=== PATIENT | male | born 1945 | race Caucasian/White ===

== ENCOUNTER 2016-06-02 05:47 | Inpatient (IN) | payer OTHER ==
[2016-05-23 09:16] LABS: % IMMATURE GRANULYOCYTES 0.4 % (0.0-1.1); ABSOLUTE IMMATURE GRANULOCYTES 0.02 10^3/uL (0.00-0.10); ADD DIFF? NO; ADD MORPH? NO; ADD SCAN? NO; ATYPICAL LYMPHOCYTE FLAG 10 (0-99); FRAGMENT RBC FLAG 0 (0-99); HEMATOCRIT 45.8 % (40.0-51.0); HEMOGLOBIN 15.6 g/dL (13.7-17.5); LEFT SHIFT FLG 0 (0-99); LIPEMIA HEMOLYSIS FLAG 90 (0-99); MEAN CELL HEMOGLOBIN 31.8 pg (27.9-34.1); MEAN CELL HEMOGLOBIN CONCENTR. 34.1 g/dL (32.4-36.7); MEAN CELL VOLUME 93.3 fL (81.5-99.8); MEAN PLATELET VOLUME 11.1 fL (8.7-11.7); PLATELET CLUMPS FLAG 40 (0-99); PLATELET COUNT 127 10^3/uL (150-400); RED BLOOD CELL COUNT 4.91 10^6/uL (4.40-6.38); RED CELL DISTRIBUTION WIDTH 13.1 % (11.5-15.2)
[2016-06-02] MEDS ORDERED: FAMOTIDINE 20 MG TAB ONE (06:13)
[2016-06-02] MEDS ORDERED: DEXAMETHASONE 4 MG/ML VIAL ONE (06:13)
[2016-06-02] MEDS ORDERED: ACETAMINOPHEN 325 MG TAB ONE (06:14)
[2016-06-02] MEDS ORDERED: CEFAZOLIN 2 GM/DEXTROSE/100 ML BAG IV ONE (06:14)
[2016-06-02] MEDS ORDERED: LIDOCAINE 1% 5 ML SDV ONE (06:27)
[2016-06-02] MEDS ORDERED: TRANEXAMIC ACID 3,000 MG/50 ML BAG IRR ONE (06:33)
[2016-06-02] MEDS ORDERED: SKIN ADHESIVE (DERMABOND) 1 EACH TP ONE (06:33)
[2016-06-02] MEDS ORDERED: VANCOMYCIN 1 GM VIAL IV ONE (06:34)
[2016-06-02] MEDS ORDERED: LR 1,000 ML IV ONE (06:45)
[2016-06-02] MEDS ORDERED: LIDOCAINE 1% 5 ML SDV ID PRN (06:45)
[2016-06-02] MEDS ORDERED: MIDAZOLAM 2 MG/2 ML VIAL ONE (06:50)
[2016-06-02] MEDS ORDERED: ACETAMINOPHEN 325 MG TAB PO ONE (07:00)
[2016-06-02] MEDS ORDERED: CEFAZOLIN 2 GM/DEXTR 100 ML IV ONE (07:00)
[2016-06-02] MEDS ORDERED: CHLORHEXIDINE GLUC HIBICLENS 118 ML BTL TP ONE (07:00)
[2016-06-02] MEDS ORDERED: ROPI/epiNEPH/KETOROLAC JOINT COCKTAIL IU ONE (07:00)
[2016-06-02] MEDS ORDERED: FAMOTIDINE 20 MG TAB PO ONE (07:00)
[2016-06-02] MEDS ORDERED: TRANEXAMIC ACID 3,000 MG in NS 50 ML IRR ONE (07:00)
[2016-06-02] MEDS ORDERED: DEXAMETHASONE 4 MG/ML VIAL IVP ONE (07:00)
[2016-06-02] MEDS ORDERED: PROPOFOL/EMULSION 500 MG/50 ML BOTTLE IV ONE (07:02)
[2016-06-02] MEDS ORDERED: POLYETHYLENE GLYCOL 3350 17 GM PKT PO PRN (07:25)
[2016-06-02] MEDS ORDERED: ONDANSETRON DISINTEGRATING 4 MG TAB PO PRN (07:25)
[2016-06-02] MEDS ORDERED: DIPHENOXYLATE/ATROPINE LOMOTIL 1 TAB PO PRN (07:25)
[2016-06-02] MEDS ORDERED: PHARMACY PAIN CONSULT 1 EA MISC PRN (07:25)
[2016-06-02] MEDS ORDERED: LACTULOSE 20 GM/30 ML UDCUP PO PRN (07:25)
[2016-06-02] MEDS ORDERED: PROMETHAZINE HCL 25 MG/ML INJ IVP PRN (07:25)
[2016-06-02] MEDS ORDERED: BISACODYL 10 MG SUPP PR PRN (07:25)
[2016-06-02] MEDS ORDERED: CYCLOBENZAPRINE 10 MG TAB PO PRN (07:25)
[2016-06-02] MEDS ORDERED: TEMAZEPAM 15 MG CAP PO PRN (07:25)
[2016-06-02] MEDS ORDERED: METOCLOPRAMIDE 10 MG/2 ML VIAL IVP PRN (07:25)
[2016-06-02] MEDS ORDERED: MAGNESIUM HYDROXIDE 30 ML UDCUP PO PRN (07:25)
[2016-06-02] MEDS ORDERED: ONDANSETRON 4 MG/2 ML VIAL IVP PRN (07:25)
[2016-06-02] MEDS ORDERED: diphenhydrAMINE 25 MG CAP PO PRN (07:25)
[2016-06-02] MEDS ORDERED: PROMETHAZINE HCL 25 MG SUPPR PR PRN (07:25)
[2016-06-02] MEDS ORDERED: LIDOCAINE 2% JELLY 5 ML TUBE ONE ×2 (08:07)
[2016-06-02] MEDS ORDERED: LIDOCAINE 2% 5 ML SDV ONE (08:07)
[2016-06-02] MEDS ORDERED: PROPOFOL 200 MG/20 ML VIAL ONE (08:08)
[2016-06-02] MEDS ORDERED: ROPIVACAINE HCL 150 MG/30 ML INJ ONE (08:23)
--- NOTE | 2016-06-02 08:31 | POSTOPPROG ---
Post Op Note Date of Operation: 06/02/16 Surgeon: Mao Andino Pediatric Allergist: noemi andino Anesthesiologist: dr. montanez Anesthesia: Spinal, Other (Specify) (adductor canal block) Pre-op Diagnosis: right knee OA Post-op Diagnosis: same Indication: right knee pain due to OA that failed conservative measures Procedure: R TKA Findings: severe knee OA Inf/Abcess present in the surg proc area at time of surgery?: No EBL: 50-100
--- NOTE | 2016-06-02 09:29 | DX ---
Portable Right Knee, AP and Lateral Views, Three Views Total, at 8:58 a.m. Clinical History: 70-year-old male in the PACU after a knee arthroplasty. Comparison Study: Right knee, dated March 06, 2007. Findings: The patient has undergone a tricomponent knee arthroplasty, with anatomic alignment of the distal femoral, proximal tibial, and posterior patellar components. There is normally expected air wi thin the soft tissues. A pneumatic cuff is seen over the calf. Impression: Anatomic alignment following a tricomponent knee arthroplasty.
[2016-06-02] MEDS: SENNOSIDES/DOCUSATE SODIUM TAB PO SCH ×2 (10:14→19:48)
[2016-06-02] MEDS: LR 1,000 ML IV SCH ×2 (10:33→21:58)
[2016-06-02] MEDS: ACETAMINOPHEN 325 MG TAB PO SCH ×3 (12:59→23:56)
[2016-06-02] MEDS: oxyCODONE IR 5 MG TAB PO PRN ×5 (13:00→23:56)
[2016-06-02] MEDS ORDERED: ceFAZolin 2 GM/DEXTROSE 100 ML IV SCH (14:00)
[2016-06-02] MEDS: ceFAZolin 2 GM in D5W 100 ML IV SCH ×2 (14:43→21:13)
[2016-06-02] MEDS ORDERED: WARFARIN SODIUM 5 MG TAB PO SCH (16:00)
[2016-06-02] MEDS: FAMOTIDINE 20 MG TAB PO SCH (19:48)
--- NOTE | 2016-06-02 23:05 | GOP ---
[f rep st] OPERATIVE REPORT DATE OF OPERATION: 06/02/2016 SURGEON: Miles Benton MD COMMUNICATION SKILLS INSTRUCTOR: Shelia Benton PA-C. ANESTHESIA: Spinal. PREOPERATIVE DIAGNOSIS: Right knee osteoarthritis. POSTOPERATIVE DIAGNOSIS: Right knee osteoarthritis. PROCEDURE PERFORMED: Right total knee arthroplasty. FINDINGS/PATHOLOGY: Severe tricompartmental osteoarthritis. ESTIMATED BLOOD LOSS: 30 cc. INDICATIONS: This is a 70-year-old male with severe and progressive pain and deformity of the right knee unresponsive to conservative care. Risks and benefits of the surgical intervention were explained in detail. DESCRIPTION OF PROCEDURE: The patient was brought to the operative room and placed on the table in the supine position. Spinal anesthesia was induced without difficulty. A pneumatic tourniquet was applied about the right proximal thigh, and the leg was prepped and draped in a sterile fashion. The leg jain was applied. After exsanguination by elevation the tourniquet was inflated to 275 mm of mercury. Incision was made anterior medial from the tibial tuberosity to a point 2 cm proximal to the superior pole of the patella. Medial parapatellar arthrotomy was carried out from the superior pole of the patella and posteriorly in line with the fibers of the Type II VMO. The medial collateral ligament was elevated and the infrapatellar fat pad was resected. The patella was everted and the articular surface was excised. A 38 mm patellar button was placed. The distal femoral guide hole was drilled and the 6 degree alignment janusz was placed. A 10 mm distal femoral cut was made without difficulty. Attention was turned to the tibia and a standard 9 mm cut based on the lateral tibial condyle was performed. The tibial articular surface was excised without difficulty. Attention was turned back to the femur and a size 7 Triathlon femoral cutting block was positioned. Anterior, posterior, and chamfer cuts were made, followed by the intercondylar box cut. The knee was extended and the remnants of the medial and lateral meniscus were excised. The posterior capsule was injected with ropivacaine, epinephrine and Toradol. A size 7 MIS mini-keel tibial tray was positioned. Trial reduction was then carried out. There was excellent range of motion, alignment, and stability using the 9 mm polyethylene. All trials were then removed. The joint was thoroughly irrigated and carefully dried. Two packages of cement and 2 grams of vancomycin were mixed in the vacuum mixer and placed on the fixation surfaces of all surfaces of the components. The components were implanted and all excess cement was thoroughly removed. The permanent 9 mm polyethylene X3 was placed without difficulty. The tourniquet was deflated and all bleeders were coagulated. The wound was thoroughly irrigated and closed using interrupted sutures of 2-0 Vicryl for the joint capsule. The subcu was closed with 3-0 Vicryl and the skin with 4-0 Monocryl. Dermabond and Steri-Strips were applied followed by a compressive dressing. The patient was then moved from the operating room to the recovery room in good condition, having tolerated the procedure well. /[id number]/MODL MTDD
[2016-06-03] MEDS: oxyCODONE IR 5 MG TAB PO PRN ×3 (03:35→11:09)
[2016-06-03] MEDS: ACETAMINOPHEN 325 MG TAB PO SCH ×2 (04:33→11:38)
[2016-06-03 05:17] LABS: HEMATOCRIT 34.9 % (40.0-51.0)
[2016-06-03 05:31] LABS: INR 1.21 (0.83-1.16); PROTIME(PATIENT) 15.3 SEC (12.0-15.0)
[2016-06-03] MEDS ORDERED: LEVOTHYROXINE 50 MCG TAB PO SCH (06:00)
[2016-06-03 07:34] VITALS: BP 116/68; PULSE 67; RESP 18; TEMP 98.5; O2SAT 93
[2016-06-03] MEDS: FAMOTIDINE 20 MG TAB PO SCH (08:32)
[2016-06-03] MEDS: SENNOSIDES/DOCUSATE SODIUM TAB PO SCH (08:32)
[2016-06-03] MEDS ORDERED: ENOXAPARIN 40 MG/0.4 ML SYR SC SCH (09:00)
--- NOTE | 2016-06-03 09:02 | SOAPPROG ---
SOAP Progress Note Assessment/Plan: Assessment: Sumanth is doing well POD 1 s/p R TKA pain management: pain is well controlled on oral pain meds VTE ppx: recommend coumadin and lovenox, INR today 1.2. cont ALFRED and SCD anemia: level expected initially postop, asymptomatic. continue to monitor D/c planning: d/c to home today spasms: script written for flexeril. handed to patient's today. Plan: 06/03/16 09:00 Subjective: Sumanth is doing well today, denies SOB, chest pain and N/V Objective: Vital Signs Temp Pulse Resp BP Pulse Ox 36.9 C 67 18 116/68 93 06/03/16 07:33 06/03/16 07:33 06/03/16 07:33 06/03/16 07:33 06/03/16 07:33 Laboratory Results 06/03/16 04:25 06/02/16 06/03/16 06/04/16 05:59 05:59 05:59 Intake Total 2850 Output Total 1150 275 Balance 1700 -275 PT 15.3 SEC (12.0-15.0) H 06/03/16 04:25 INR 1.21 (0.83-1.16) H 06/03/16 04:25 RLE: incision dressing is clean and dry, NVI, +pf/df ICD10 Worksheet Patient Problems: Problems Problem Status Diagnosed Primary localized osteoarthritis of right knee Acute
--- NOTE | 2016-06-08 10:11 | GDS ---
[f rep st] DISCHARGE SUMMARY ADMISSION DIAGNOSIS: Right knee osteoarthritis. DISCHARGE DIAGNOSIS: Right knee osteoarthritis. PROCEDURE: Right total knee arthroplasty. VTE PROPHYLAXIS: Coumadin and Lovenox recommended. BRIEF DESCRIPTION OF HOSPITAL STAY: Patient was admitted for an elective joint arthroplasty. The p atient tolerated the procedure well and has passed physical therapy. The patient was given appropri ate antibiotic prophylaxis and venous thromboembolism prophylaxis. The patient's pain was well cont rolled on oral pain medication, patient was holding down food, and had urinated. Decision was made to discharge the patient. The patient was given post-operative prescriptions pre-operatively. PLAN: To follow up with Dr. Benton at [facility] in 2 to 3 weeks. /[id number]/MODL
== END 2016-06-03 11:59 | disposition home or self-care (01) | DRG 470 ==
LOC: F3N 05:47
PROVIDERS: ADMIT Orthopaedic Surgery; ATTEND Orthopaedic Surgery
PROC: 0SRC0J9 Replacement of Right Knee Joint with Synthetic Substitute, Cemented, Open Approach (ICD-10-PCS; principal; 2016-06-02 07:15)
DX: M17.11 Unilateral primary osteoarthritis, right knee (principal); E03.9 Hypothyroidism, unspecified
CPT/HCPCS: 97116-GP; 97161-GP; 97165-GO; C1713; G8978-GP-CK; G8979-GP-CI; G8980-GP-CI; G8987-GO-CI; G8988-GO-CI; G8989-GO-CI; J0171; J0690; J1100; J1650; J1885; J2250; J2704; J2795; J3370

== ENCOUNTER 2017-06-29 15:37 | Emergency (ER) | payer OTHER ==
--- NOTE | 2017-06-29 15:59 | EDPHY ---
H & P Time Seen by Provider: 06/29/17 15:46 HPI/ROS: CHIEF COMPLAINT: Abdominal pain HISTORY OF PRESENT ILLNESS: Patient is had intermittent symptoms for the last 2 -3 weeks. Since yesterday at 7:00 p.m. He has had central abdominal pain not helped by Pepto-Bismol. No urinary symptoms or fever or vomiting. He has decreased appetite but no diarrhea. He had a bowel movement this morning but did not have one with coffee which is unusual for him. He presents with continued central abdominal pain. Mild symptoms, do not radiate. Symptoms are not exertional or changed with oral intake. REVIEW OF SYSTEMS: Eye: no change in vision ENT: no sore throat Cardiac: no chest pain or syncope Pulmonary: no cough or SOB Abdomen: HPI Musculoskeletal: no back pain Skin: no rash Neuro: no headache Constitutional: no fever : no urinary symptoms A comprehensive 10 point review of systems is otherwise negative aside from elements mentioned in the history of present illness. PAST MEDICAL HISTORY: Hypothyroid and prostatectomy Social history: Nonsmoker General Appearance: Alert and conversant, cooperative. Eyes: No scleral icterus. ENT, Mouth: Normal mucous membranes. Respiratory: Normal respiratory effort, breath sounds equal, lungs are clear to auscultation. Cardiovascular: Regular rate and rhythm. Gastrointestinal: Mild central and epigastric abdominal tenderness without rebound or guarding. No hernia or pulsatile mass appreciated. Neurological: Alert, face symmetric, normal motor and sensory in extremities. Ambulatory. Skin: Warm and dry, no rashes. Musculoskeletal: No peripheral edema. Psychiatric: Not agitated. Emergency Department course/MDM: Declined medication for pain. CT abdomen and pelvis with IV contrast discussed and consented. He was seen earlier at urgent care. 1622: Postvoid bladder residual is 0. 1723: Right renal cyst 14.8cm per [place], otherwise negative. Symptoms likely due to this large mass. I think at this point based on the evaluation is unlikely he has pancreatitis or gallbladder disease, or other intra- abdominal surgical process. Cardiac problem also unlikely. 1728: Discussed with Kaitlynn who will see the patient in the office early next week. Discussed with the patient. Plan for oral [place] and outpatient urology follow-up next week, patient is in agreement with this plan. Smoking Status: Never smoked Constitutional: Initial Vital Signs Temperature (C) 36.4 C 06/29/17 15:43 Heart Rate 75 06/29/17 15:43 Respiratory Rate 19 06/29/17 15:43 Blood Pressure 158/103 H 06/29/17 15:43 O2 Sat (%) 94 06/29/17 15:43 O2 Delivery Mode Room Air Allergies/Adverse Reactions: No Known Allergies Allergy (Unverified 05/02/16 11:43) Home Medications: Medication Instructions Recorded Acetaminophen [Tylenol 325mg (*)] 650 - 1,300 mg PO DAILY PRN 05/02/16 Herbals/Supplements -Info Only 1 ea PO DAILY 05/02/16 Levothyroxine [Synthroid 50 mcg 50 mcg PO DAILY06 05/02/16 (*)] Melatonin [Melatonin 3 MG (*)] 9 mg PO HS PRN 05/02/16 diphenhydrAMINE [Benadryl 25 MG 25 mg PO DAILY PRN 05/02/16 (*)] Acetaminophen [Tylenol 325mg (*)] 650 mg PO Q6HRS #0 tab 06/03/16 Cyclobenzaprine [Flexeril 10 MG 10 mg PO Q8HRS PRN #30 tab 06/03/16 (*)] Enoxaparin [Lovenox 40 MG (*)] 40 mg SC DAILY #4 syr 06/03/16 Sennosides/Docusate Sodium 1 - 2 tab PO BID #0 tab 06/03/16 [Senokot-S] Warfarin Sodium [Coumadin 5MG (*)] 5 mg PO DAILY AT 4PM #20 tab 06/03/16 celeCOXIB [Celebrex (*)] 200 mg PO DAILY #20 cap 06/03/16 oxyCODONE IR [Oxycodone Ir (*)] 5 - 10 mg PO Q3HRS PRN #120 tab 06/03/16 Hydrocodone/APAP 5/325 [[place] 0.5 - 1 tab PO Q4-6PRN PRN #11 tab 06/29/17 5/325] Medical Decision Making - Diagnostics EKG Interpretation: 12-lead EKG interpreted by me; official reading is in trace master. My interpretation is sinus rhythm rate 71 with borderline left axis but no acute ischemic changes. Imaging Results: Imaging Impressions Abdomen CT 06/29/17 16:14 Impression: 1. No acute findings in the abdomen or pelvis. 2. Large hiatal hernia. 3. 14.8 cm benign-appearing right renal cyst. 4. Degenerative change in the spine, as above. 5. Mild splenomegaly. 6. Additional findings as above. Imaging: Discussed imaging studies w/ fisher scallop Radiologist Differential Diagnosis: Differential diagnosis considered for abdominal pain including but not limited to vascular problem, urinary retention, appendicitis, cholecystitis, pancreatitis, gastritis and urinary tract infection. - Data Points Laboratory Results: Laboratory Results 06/29/17 16:05 06/29/17 16:05 06/29/17 06/29/17 06/29/17 16:07 16:05 16:05 WBC RBC Hgb POC Hgb 15.3 gm/dL gm/dL (13.7-17.5) Hct POC Hct 45 % % (40-51) MCV MCH MCHC RDW Plt Count MPV Neut % (Auto) Lymph % (Auto) [place] % (Auto) Eos % (Auto) Baso % (Auto) Nucleat RBC Rel Count Absolute Neuts (auto) Absolute Lymphs (auto) Absolute Monos (auto) Absolute Eos (auto) Absolute Basos (auto) Absolute Nucleated RBC Immature Gran % Immature Gran # POC Sodium 142 mEq/L mEq/L (135-145) Sodium 141 mEq/L mEq/L (135-145) POC Potassium 3.7 mEq/L mEq/L (3.3-5.0) Potassium 3.9 mEq/L mEq/L (3.5-5.2) POC Chloride 105 mEq/L mEq/L (97-110) Chloride 105 mEq/L mEq/L (97-110) Carbon Dioxide 25 mEq/l mEq/l (22-31) Anion Gap 11 mEq/L mEq/L (8-16) POC BUN 15 mg/dL mg/dL (7-23) BUN 15 mg/dL mg/dL (7-23) Creatinine 1.0 mg/dL mg/dL (0.7-1.3) POC Creatinine 1.0 mg/dL mg/dL (0.7-1.3) Estimated GFR > 60 Glucose 96 mg/dL mg/dL (70-100) POC Glucose 102 mg/dL H mg/dL (70-100) Calcium 9.6 mg/dL mg/dL (8.5-10.4) Total Bilirubin 0.6 mg/dL mg/dL (0.1-1.4) Conjugated Bilirubin 0.4 mg/dL mg/dL (0.0-0.5) Unconjugated Bilirubin 0.2 mg/dL mg/dL (0.0-1.1) AST 18 IU/L IU/L (17-59) ALT 33 IU/L IU/L (21-72) Alkaline Phosphatase 70 IU/L IU/L (38-126) Total Protein 7.5 g/dL g/dL (6.3-8.2) Albumin 4.5 g/dL g/dL (3.5-5.0) Lipase 55 IU/L IU/L (23-300) Urine Color PALE YELLOW Urine Appearance CLEAR Urine pH 5.0 (5.0-7.5) Ur Specific [place] 1.006 (1.002-1.030) Urine Protein NEGATIVE (NEGATIVE) Urine Ketones NEGATIVE (NEGATIVE) Urine Blood NEGATIVE (NEGATIVE) Urine Nitrate NEGATIVE (NEGATIVE) Urine Bilirubin NEGATIVE (NEGATIVE) Urine Urobilinogen NEGATIVE EU EU (0.2-1.0) Ur Leukocyte Esterase NEGATIVE (NEGATIVE) Urine Glucose NEGATIVE (NEGATIVE) 06/29/17 16:05 WBC 5.81 10^3/uL 10^3/uL (3.80-9.50) RBC 4.76 10^6/uL 10^6/uL (4.40-6.38) Hgb 15.1 g/dL g/dL (13.7-17.5) POC Hgb Hct 43.8 % % (40.0-51.0) POC Hct MCV 92.0 fL fL (81.5-99.8) MCH 31.7 pg pg (27.9-34.1) MCHC 34.5 g/dL g/dL (32.4-36.7) RDW 13.2 % % (11.5-15.2) Plt Count 131 10^3/uL L 10^3/uL (150-400) MPV 11.5 fL fL (8.7-11.7) Neut % (Auto) 59.3 % % (39.3-74.2) Lymph % (Auto) 28.9 % % (15.0-45.0) [place] % (Auto) 8.6 % % (4.5-13.0) Eos % (Auto) 2.2 % % (0.6-7.6) Baso % (Auto) 0.5 % % (0.3-1.7) Nucleat RBC Rel Count 0.0 % % (0.0-0.2) Absolute Neuts (auto) 3.44 10^3/uL 10^3/uL (1.70-6.50) Absolute Lymphs (auto) 1.68 10^3/uL 10^3/uL (1.00-3.00) Absolute Monos (auto) 0.50 10^3/uL 10^3/uL (0.30-0.80) Absolute Eos (auto) 0.13 10^3/uL 10^3/uL (0.03-0.40) Absolute Basos (auto) 0.03 10^3/uL 10^3/uL (0.02-0.10) Absolute Nucleated RBC 0.00 10^3/uL 10^3/uL (0-0.01) Immature Gran % 0.5 % % (0.0-1.1) Immature Gran # 0.03 10^3/uL 10^3/uL (0.00-0.10) POC Sodium Sodium POC Potassium Potassium POC Chloride Chloride Carbon Dioxide Anion Gap POC BUN BUN Creatinine POC Creatinine Estimated GFR Glucose POC Glucose Calcium Total Bilirubin Conjugated Bilirubin Unconjugated Bilirubin AST ALT Alkaline Phosphatase Total Protein Albumin Lipase Urine Color Urine Appearance Urine pH Ur Specific [place] Urine Protein Urine Ketones Urine Blood Urine Nitrate Urine Bilirubin Urine Urobilinogen Ur Leukocyte Esterase Urine Glucose Point of Care Test Results: 06/29/17 16:07 POC Sodium 142 POC Potassium 3.7 POC Chloride 105 POC BUN 15 POC Creatinine 1.0 POC Glucose 102 H Departure - Departure Disposition: Home, Routine, Self-Care Clinical Impression: Renal cyst Condition: Good Instructions: Kidney Cyst (ED) Referrals: Cesilia Duarte NP [Primary Care Provider] - As per Instructions Jose D Calderón MD [Medical Doctor] - 3-4 days, if not improved (Please follow-up with his urologist early next week. I discussed the case with him in the emergency department.) Prescriptions: Hydrocodone/APAP 5/325 [[place] 5/325] 0.5 - 1 tab PO Q4-6PRN PRN #11 tab PRN Reason: For Pain
[2017-06-29 16:17] LABS: PLATELET COUNT 131 10^3/uL (150-400)
[2017-06-29] MEDS ORDERED: IOPAMIDOL (ISOVUE-300) 100 ML BTL ONE (16:35)
[2017-06-29 17:25] VITALS: RESP 18; TEMP 97.9
--- NOTE | 2017-06-29 17:44 | CPEKG ---
Heart Rate: 71 RR Interval: 845 P-R Interval: 204 QRSD Interval: 88 QT Interval: 396 QTC Interval: 431 P [place]: 8 QRS [place]: -24 T Wave [place]: 23 EKG Severity - OTHERWISE NORMAL ECG - EKG Impression: SINUS RHYTHM EKG Impression: BORDERLINE LEFT AXIS DEVIATION Electronically Signed By: Yared Franco 29-Jun-2017 18:10:48
[2017-06-29 17:58] VITALS: BP 154/96; PULSE 74; O2SAT 93
== END 2017-06-29 18:17 | disposition home or self-care (01) ==
DX: N28.1 Cyst of kidney, acquired (principal); Z79.01 Long term (current) use of anticoagulants
CPT/HCPCS: 74177; 93005; 99285; Q9967; 82947-QW